=== PATIENT | male | born 1940 | race Caucasian/White ===

== ENCOUNTER → 2019-02-02 | Outpatient (CLI) | payer MEDICARE ==
[~2019-02-02] MED LIST: ALLO100T PO; CARV3.12 PO; GLIM1TAB2 PO; PANT40TA25 PO; PRED5TAB PO; RIVA15TA PO; SPIR25TA6 PO
== END | disposition home or self-care (01) ==
LOC: SHCH 09:23
PROVIDERS: ATTEND Internal Medicine Cardiovascular Disease
DX: I08.1 Rheumatic disorders of both mitral and tricuspid valves (principal); I50.22 Chronic systolic (congestive) heart failure; Z95.0 Presence of cardiac pacemaker; M85.88 Other specified disorders of bone density and structure, other site; M47.814 Spondylosis without myelopathy or radiculopathy, thoracic region
CPT/HCPCS: 71046; 93306

== ENCOUNTER 2019-05-14 05:59 | Day surgery (SDC) | payer MEDICARE ==
[2019-05-12 11:00] VITALS: BP 93/58
[2019-05-12 11:13] LABS: BASOPHILS % (AUTO) 1.5 % (0.0-5.0); HEMATOCRIT 42.7 % (42-54); LYMPHOCYTES % (AUTO) 8.9 % (21.0-51.0); MEAN CORPUSCULAR HEMOGLOBIN 33.1 pg (27.0-33.0); MEAN CORPUSCULAR HGB CONC 34.8 g/dL (32.0-36.0); MEAN CORPUSCULAR VOLUME 95.3 fL (79-99); MONOCYTES % (AUTO) 7.6 % (3.0-13.0); NUCLEATED RED BLOOD CELLS 0.1 % (0.0-0.19); PLATELET COUNT (AUTO) 282 K/uL (130-400); RED BLOOD CELL COUNT(AUTO) 4.48 MIL/uL (4.50-6.20); WHITE BLOOD COUNT (AUTO) 10.4 K/uL (4.8-10.8)
[2019-05-12 11:19] LABS: APPEARANCE,URINE CLEAR (CLEAR); BILIRUBIN,URINE NEGATIVE (NEGATIVE); COLOR,URINE YELLOW (YELLOW); GLUCOSE, URINE (UA) 500 mg/dL (NEGATIVE); KETONES,URINE NEGATIVE (NEGATIVE); LEUKOCYTE ESTERASE ,URINE NEGATIVE (NEGATIVE); NITRATE,URINE NEGATIVE (NEGATIVE); OCCULT BLOOD,URINE NEGATIVE (NEGATIVE); PROTEIN,URINE NEGATIVE (NEGATIVE); UROBILINOGEN,URINE 0.2 mg/dL (0.2-1.0)
[2019-05-12 11:20] LABS: CREATININE 2.3 mg/dL (0.5-1.5); POTASSIUM 3.5 mmol/L (3.5-5.1)
[2019-05-12 11:25] LABS: BACTERIA,URINE Rare /HPF (None Seen); RBC,URINE 0-1 /HPF (0-1); SQUAMOUS EPITHELIAL CELL,UR Rare /HPF (0-2); WBC,URINE 0-1 /HPF (0-1)
[2019-05-12 11:37] LABS: INR 1.19 (0.85-1.15); PROTHROMBIN TIME 12.5 SEC (9.6-11.6)
[2019-05-12 12:15] LABS: PARTIAL THROMBOPLASTIN TIME 36.5 SEC (26.3-35.5)
--- NOTE | 2019-05-13 13:40 | NUR ---
LABS ABNORMAL BUN/CREA , CHEST XRAY REPORTED TO DENISE DAMICO WITH DR. CEE, NO FURTHER ORDERS GIVEN,
[~2019-05-14] VITALS: Ht 172.7 cm; Wt 68.9 kg
[2019-05-14] VITALS (8 sets, daily range): BP systolic 89–105; BP diastolic 55–62
[~2019-05-14 05:59] MED LIST changes: -CARV3.12 PO; -GLIM1TAB2 PO; +LEVO50TA11 PO; -PRED5TAB PO; -SPIR25TA6 PO; +TORS20TA PO; +VALS40TA11 PO
[2019-05-14] MEDS ORDERED: SODIUM CHLORIDE 0.9% 1000ML 1,000 ML IV ONE (06:02)
[2019-05-14] MEDS ORDERED: SPIR25TA6 PO (06:45)
[2019-05-14] MEDS ORDERED: LIDOCAINE HCL 2% 20ML ONE (07:15)
[2019-05-14] MEDS ORDERED: NITROGLYCERIN 5 MG/ML 10 ML VIAL IV ONE (07:15)
[2019-05-14] MEDS ORDERED: HEPARIN SODIUM 1000UNIT/ML 10ML VIAL ONE (07:15)
[2019-05-14] MEDS ORDERED: IOHEXOL 350 MG/ML 100ML INFUS..BTL IV ONE (07:16)
--- NOTE | 2019-05-14 07:30 | NUR ---
PROCEDURE PT TAKEN TO ASSISTANT DISTRICT ATTORNEY VIA BED,NO DISTRESS NOTED. FAMILY AT BEDSIDE
--- NOTE | 2019-05-14 09:50 | NUR ---
POST RECEIVED PT FROM [facility], S/P [facility], PT AWAKE AND ALERT, RIGHT GROIN DRESSING DRY AND INTACT, SEE POST CATH ASSESSMENT. PT DENIES ANY PAIN OR DISCOMFORTS. PT / SPOUSE INSTRUCTED TO MAINTAIN BEDREST FOR 3 HRS. PLAN OF CARE DISCUSS WITH PATIENT /SPOUSE
--- NOTE | 2019-05-14 12:35 | NUR ---
DC DC INSTRUCTIONS GIVEN TO PT /PTS SPOUSE WITH NEW RX, INSTRUCTED NO NEW MED CHANGES, TO F/U WITH DR. CEE. RIGHT GROIN DRESSING DRY AND INTACT, NO DISTRESS NOTED. DENIED ANY PAIN OR DISCOMFORTS.
--- NOTE | 2019-05-14 12:50 | NUR ---
DC PT DC HOME VIA WC, NO DISTRESS NOTED. DENIED ANY PAIN OR DISCOMFORTS. ACCOMPANIED BY SPOUSE AND DAUGHTER, PT DENIED ANY PAIN OR DISCOMFORTS
== END 2019-05-14 12:50 | disposition home or self-care (01) ==
LOC: DAH 05:59
PROVIDERS: ATTEND Internal Medicine Cardiovascular Disease
DX: I25.10 Atherosclerotic heart disease of native coronary artery without angina pectoris (principal); E86.0 Dehydration; I50.89 Other heart failure; Z79.899 Other long term (current) drug therapy; Z98.890 Other specified postprocedural states; Z95.0 Presence of cardiac pacemaker; I13.0 Hypertensive heart and chronic kidney disease with heart failure and stage 1 through stage 4 chronic kidney disease, or unspecified chronic kidney disease; N18.2 Chronic kidney disease, stage 2 (mild); I48.91 Unspecified atrial fibrillation; I48.92 Unspecified atrial flutter
CPT/HCPCS: 36415; 71045; 80048; 81001; 85025; 85610; 85730; 93005; 93451; 93463; A4606; C1769; C1894 ×3; J1644; J3490 ×2; J7030; Q9967